=== PATIENT | male | born 2000 | race Caucasian/White ===

== ENCOUNTER 2024-03-04 09:22 | Day surgery (SDC) | payer BC ==
[2024-03-03 15:16] VITALS: BMI 33.1
[2024-03-04] MEDS ORDERED: AFRIN NASAL MIST 15 ML BOT ONE (09:56)
[2024-03-04] MEDS ORDERED: Oxymetazoline HCl 0.05% ( 15 ML ) ONE (10:00)
[2024-03-04] MEDS ORDERED: Fentanyl 250 MCG/5 ML VIAL ONE (10:42)
[2024-03-04] MEDS ORDERED: PROPOFOL 40 ML ONE (10:42)
[2024-03-04] MEDS ORDERED: Lidocaine 1% PF 5 ML VIAL ONE (10:43)
[2024-03-04] MEDS ORDERED: Dexamethasone 20 MG/5 ML VIAL ONE (10:44)
[2024-03-04] MEDS ORDERED: Ondansetron PF 4 MG/2 ML Vial ONE (10:44)
[2024-03-04] MEDS ORDERED: EPINEPHrine 1 MG/ML VIAL ONE (11:08)
[2024-03-04] MEDS ORDERED: Lidocaine 1% w/Epinephrine 1:200K 30 ML VIAL ONE (11:08)
[2024-03-04] MEDS ORDERED: Mupirocin 2% Ointment 22 GM Tube ONE (11:08)
[2024-03-04] MEDS ORDERED: Midazolam HCl 5 mg/5 ml Vial ONE (11:14)
[2024-03-04] MEDS ORDERED: Midazolam HCl 2 mg/2 ml Vial ONE (11:16)
== END 2024-03-04 14:30 | disposition home or self-care (01) ==
LOC: CSHSDC 09:22
PROVIDERS: ATTEND Specialist
PROC: 09BM4ZZ Excision of Nasal Septum, Percutaneous Endoscopic Approach (ICD-10-PCS; principal; 2024-03-04)
PROC: 09TL8ZZ Resection of Nasal Turbinate, Via Natural or Artificial Opening Endoscopic (ICD-10-PCS; principal; 2024-03-04)
DX: J34.2 Deviated nasal septum (principal); J34.3 Hypertrophy of nasal turbinates; E66.9 Obesity, unspecified; Z68.32 Body mass index [BMI] 32.0-32.9, adult
CPT/HCPCS: J0171; J1100; J2250; J2405; J2704; J3010